=== PATIENT | female | born 1985 | race Asian ===

== ENCOUNTER 2017-03-23 10:52 | Outpatient (CLI) | payer OTHER ==
--- NOTE | 2017-03-23 11:35 | XRAY Preliminary Report ---
Exam: XR CHEST 2 VIEW PA/LAT IMPRESSION: Findings suggest multifocal pneumonia in the correct clinical context. RADIA The call report notification system was initiated by Dr. Niraj Del Valle at 11:22 hrs on 03/23/17. The above findings were discussed with dr. Hoffman by Dr. Niraj Del Valle at 11:34 hrs on 03/23/17. SITE ID: [id number]
--- NOTE | 2017-03-23 11:38 | XRAY Report ---
EXAM: CHEST RADIOGRAPHY EXAM DATE: 03/23/2017 11:14 AM. CLINICAL HISTORY: COUGH, SOB, METHOTREXATE USE. COMPARISON: None. TECHNIQUE: 2 views. FINDINGS: Lungs/Pleura: Patchy bilateral pulmonary opacities in the left upper lobe and right middle and probab ly lower lobe, suggesting multifocal pneumonia. No large pleural effusion. No convincing pneumothorax . Mediastinum: Heart and mediastinal contours are unremarkable. Other: None. IMPRESSION: Findings suggest multifocal pneumonia in the correct clinical context. RADIA The call report notification system was initiated by Dr. Niraj Del Valle at 11:22 hrs on 03/23/17. The above findings were discussed with dr. Hoffman by Dr. Niraj Del Valle at 11:34 hrs on 03/23/17. Referring Provider Line: [phone] SITE ID: [id number]
[2017-03-23 11:44] LABS: BASOPHILS % (AUTO) 0.4 %; EOSINOPHILS # (AUTO) 0.1 10^3/uL (0.0-0.7); EOSINOPHILS % (AUTO) 1.5 %; HCT - HEMATOCRIT 30.9 % (37.0-47.0); HGB - HEMOGLOBIN 10.2 g/dL (12.0-16.0); LYMPHOCYTES # (AUTO) 1.7 10^3/uL (1.5-3.5); LYMPHOCYTES % (AUTO) 22.3 %; MEAN CORPUSCULAR HEMOGLOBIN 26.3 pg (27.0-31.0); MEAN CORPUSCULAR HGB CONC 33.1 g/dL (32.0-36.0); MEAN CORPUSCULAR VOLUME 79.5 fL (81.0-99.0); MEAN PLATELET VOLUME 8.8 fL (7.9-10.8); MONOCYTES # (AUTO) 0.8 10^3/uL (0.0-1.0); MONOCYTES % (AUTO) 10.5 %; NEUTROPHILS # (AUTO) 5.1 10^3/uL (1.5-6.6); NEUTROPHILS % (AUTO) 65.3 %; RED BLOOD COUNT 3.89 10^6/uL (4.20-5.40); RED CELL DISTRIBUTION WIDTH 14.4 % (12.0-15.0); UNCORRECTED WHITE BLOOD COUNT 7.8 x10^3/uL; WHITE BLOOD COUNT 7.8 x10^3/uL (4.8-10.8)
[2017-03-23 11:56] LABS: ALBUMIN/GLOBULIN RATIO 0.6 (1.0-2.2); BILIRUBIN,TOTAL 0.5 mg/dL (0.2-1.0); CALCIUM 8.6 mg/dL (8.5-10.3); CREATININE 0.6 mg/dL (0.4-1.0); POTASSIUM 4.1 mmol/L (3.5-5.0); TOTAL PROTEIN 8.5 g/dL (6.7-8.2)
== END 2017-03-23 10:53 | disposition home or self-care (01) ==
LOC: DI 10:52
PROVIDERS: ATTEND Physician Assistant
DX: R05 Cough (principal); R09.02 Hypoxemia; Z79.899 Other long term (current) drug therapy; D64.9 Anemia, unspecified; R06.02 Shortness of breath
CPT/HCPCS: 36415; 71020; 80053; 85025; 85379

== ENCOUNTER 2017-04-28 11:43 | Outpatient (CLI) | payer OTHER ==
--- NOTE | 2017-04-28 16:20 | XRAY Report ---
DATE OF SERVICE: 04/28/2017 TWO-VIEW CHEST: 04/28/2017 CLINICAL INDICATION: Followup bilateral pneumonia. FINDINGS: Frontal and lateral views of the chest are compared to previous films of 03/23/2017. The cardiac silhouette is within normal limits. Previously seen bilateral infiltrates have resolved. The lungs are now clear. No effusion or pneumothorax is present. IMPRESSION: RESOLUTION OF BILATERAL PNEUMONIA. TD: 04/28/2017 17:19
== END 2017-04-28 11:44 | disposition home or self-care (01) ==
LOC: DI 11:43
PROVIDERS: ATTEND Physician Assistant
DX: J18.9 Pneumonia, unspecified organism (principal)
CPT/HCPCS: 71046

== ENCOUNTER 2018-01-02 10:18 | Outpatient (CLI) | payer OTHER ==
[2018-01-02 12:24] LABS: HB2 TOTAL 12.1 g/dL; HEMOGLOBIN A1C 0.48 g/dL; HEMOGLOBIN A1C % 5.8 % (4.6-6.2)
[2018-01-02 13:30] LABS: CHOLESTEROL 100 mg/dL; HDL CHOLESTEROL 25 mg/dL; LDL CHOLESTEROL,CALCULATED 65 mg/dL; LDL/HDL RATIO 2.6 (<4.4); VLDL CHOLESTEROL 10 mg/dL
[2018-01-03 13:21] LABS: HEPATITIS B SURFACE ANTIGEN NON-REACTIVE (NON-REACTIVE)
== END 2018-01-02 10:19 | disposition home or self-care (01) ==
LOC: LAB 10:18
PROVIDERS: ATTEND Physician Assistant
DX: B20 Human immunodeficiency virus [HIV] disease (principal); R94.5 Abnormal results of liver function studies
CPT/HCPCS: 36415; 80053; 80061; 81599; 82955; 83036; 83721; 84702; 85025; 86317; 87340

== ENCOUNTER 2018-01-02 10:20 | Emergency (ER) | payer OTHER ==
[2018-01-02] MEDS ORDERED: SODIUM CHLORIDE 0.9% 1,000 ML IV ONE (10:55)
[2018-01-02 11:30] LABS: BASOPHILS % (AUTO) 0.3 %; EOSINOPHILS # (AUTO) 0.3 10^3/uL (0.0-0.7); EOSINOPHILS % (AUTO) 9.1 %; HGB - HEMOGLOBIN 11.3 g/dL (12.0-16.0); LYMPHOCYTES # (AUTO) 0.4 10^3/uL (1.5-3.5); LYMPHOCYTES % (AUTO) 12.4 %; MEAN CORPUSCULAR HEMOGLOBIN 26.1 pg (27.0-31.0); MEAN CORPUSCULAR HGB CONC 32.9 g/dL (32.0-36.0); MEAN CORPUSCULAR VOLUME 79.4 fL (81.0-99.0); MEAN PLATELET VOLUME 8.9 fL (7.9-10.8); MONOCYTES # (AUTO) 0.3 10^3/uL (0.0-1.0); MONOCYTES % (AUTO) 9.6 %; NEUTROPHILS # (AUTO) 2.3 10^3/uL (1.5-6.6); NEUTROPHILS % (AUTO) 68.6 %; PLT - PLATELET COUNT 141 10^3/uL (130-450); RED BLOOD COUNT 4.31 10^6/uL (4.20-5.40); RED CELL DISTRIBUTION WIDTH 13.6 % (12.0-15.0); WHITE BLOOD COUNT 3.3 x10^3/uL (4.8-10.8)
[2018-01-02 11:42] LABS: ALBUMIN 3.8 g/dL (3.2-5.5); ALBUMIN/GLOBULIN RATIO 0.7 (1.0-2.2); BILIRUBIN,TOTAL 0.4 mg/dL (0.2-1.0); CALCIUM 9.1 mg/dL (8.5-10.3); CREATININE 0.6 mg/dL (0.4-1.0); TOTAL PROTEIN 9.6 g/dL (6.7-8.2)
[2018-01-02 12:59] LABS: HCG UR QUAL NEGATIVE
--- NOTE | 2018-01-02 13:04 | ED Physician Documentation ---
History of Present Illness - Stated complaint Stated Complaint: FAINTING - Chief complaint Chief Complaint: Abd Pain - History obtained from History obtained from: Patient, Family (spouse) - History of Present Illness Timing: How many days ago (6) - Additonal information Additional information: The patient is a 32-year-old female who presents with watery diarrhea of 6 days' duration, and feeling faint this morning. She returned from [facility] one week ago, and was initially thought to have traveler's diarrhea. She was seen by her primary provider 4 days ago and was started on an antidiarrheal medication. Blood work subsequently revealed positive HIV test. She was seen again yesterday and further blood work was ordered for today. While the patient was at the lab getting a blood draw, she felt faint and was sent to the emergency department. She denies fever, abdominal pain, nausea or vomiting. She denies history of similar symptoms in the past. Review of Systems Constitutional: denies: Fever Nose: denies: Congestion Throat: denies: Sore throat Cardiac: denies: Chest pain / pressure Respiratory: denies: Dyspnea, Cough GI: reports: Diarrhea. denies: Abdominal Pain, Nausea, Vomiting : denies: Dysuria Skin: denies: Rash Musculoskeletal: denies: Back pain Neurologic: denies: Focal weakness, Syncope, Headache PD PAST MEDICAL HISTORY - Past Medical History Past Medical History: Yes Other Past Medical History: puneet ariza - Past Surgical History Past Surgical History: No - Present Medications Home Medications: Ambulatory Orders Medication Instructions Recorded Confirmed Loperamide [Imodium] 2 mg PO BID PRN #12 capsule 01/02/18 - Allergies Allergies/Adverse Reactions: Allergies Allergy/AdvReac Type Severity Reaction Status Date / Time No Known Drug Allergies Allergy Verified 01/02/18 10:33 - Social History Does the pt smoke?: No Smoking Status: Never smoker Does the pt drink ETOH?: No Does the pt have substance abuse?: No Additional Social History: Returned from [facility] one week ago. - Immunizations Immunizations are current?: Yes PD ED PE NORMAL - Vitals Vital signs reviewed: Yes (Hypotensive with blood pressure 88/54.) - General General: Alert and oriented X 3, Well developed/nourished - HEENT HEENT: Atraumatic, Pharynx benign - Neck Neck: Supple, no meningeal sign, No adenopathy - Cardiac Cardiac: RRR, No murmur - Respiratory Respiratory: No respiratory distress, Clear bilaterally - Abdomen Abdomen: Soft, Non tender - Back Back: No CVA TTP - Derm Derm: No rash - Extremities Extremities: No edema, No calf tenderness / cord - Neuro Neuro: Alert and oriented X 3, No motor deficit, No sensory deficit Results - Vitals Vitals: Oxygen O2 Source Room air - Labs Labs: Laboratory Tests 01/02/18 01/02/18 01/02/18 11:23 11:23 12:51 WBC 3.3 L RBC 4.31 Hgb 11.3 L Hct 34.2 L MCV 79.4 L MCH 26.1 L MCHC 32.9 RDW 13.6 Plt Count 141 MPV 8.9 Neut # (Auto) 2.3 Lymph # (Auto) 0.4 [place] # (Auto) 0.3 Eos # (Auto) 0.3 Baso # (Auto) 0.0 Absolute Nucleated RBC 0.00 Nucleated RBC % 0.0 Sodium 135 Potassium 3.9 Chloride 102 Carbon Dioxide 25 Anion Gap 8.0 BUN 13 Creatinine 0.6 Estimated GFR (MDRD) 117 Glucose 99 Calcium 9.1 Total Bilirubin 0.4 AST 42 ALT 33 Alkaline Phosphatase 77 Total Protein 9.6 H Albumin 3.8 Globulin 5.8 H Albumin/Globulin Ratio 0.7 L Lipase 26 Ur Specific [place] 1.020 Urine HCG, Qual NEGATIVE PD MEDICAL DECISION MAKING - ED course Complexity details: reviewed results, re-evaluated patient, considered differential, d/w patient, d/w family ED course: The patient's presentation is significant for diarrhea with dehydration. CBC reveals a mild leukopenia with a white blood cell count 3.3. Chemistry panel is normal. Treatment in the emergency department included administration of normal saline 1 L IV. She felt subjectively much improved after this treatment, and repeat blood pressure was normal at 110/76. She is being discharged with prescription for Imodium. I discussed with her and her the importance of outpatient follow-up, as well as potentially worrisome signs or symptoms that should prompt reevaluation in the emergency department. - Sepsis Event Vital Signs: Oxygen O2 Source Room air Departure - Departure Disposition: 01 Home, Self Care Clinical Impression: Dehydration Diarrhea Qualifiers: Diarrhea type: unspecified type Qualified Code(s): R19.7 - Diarrhea, unspecified Condition: Stable Instructions: ED Dehydration, ED Diet Vomiting Diarrhea Follow-Up: Jayde Hoffman PA [Primary Care Provider] - Prescriptions: Loperamide [Imodium] 2 mg PO BID PRN #12 capsule PRN Reason: Diarrhea Comments: Drink plenty of fluids. You can use Imodium as prescribed if needed for recurrent diarrhea. Follow-up with ARIS Hoffman as scheduled. Return to the emergency department if you develop increasing abdominal pain, recurrent dehydration or lightheadedness, or otherwise worrisome symptoms. Discharge Date/Time: 01/02/18 13:14
[2018-01-02 13:10] VITALS: BP 110/76
== END 2018-01-02 13:14 | disposition home or self-care (01) ==
LOC: ED 10:20
DX: E86.0 Dehydration (principal); R19.7 Diarrhea, unspecified; B20 Human immunodeficiency virus [HIV] disease; R94.5 Abnormal results of liver function studies; I10 Essential (primary) hypertension; D72.819 Decreased white blood cell count, unspecified
CPT/HCPCS: 36415; 71046; 80053; 80061; 81025; 82955; 83036; 83690; 84702; 85025; 86317; 87340; 96360; 99282; 99283

== ENCOUNTER 2018-01-02 13:23 | Outpatient (CLI) | payer OTHER ==
--- NOTE | 2018-01-02 15:59 | XRAY Report ---
Reason: SCREENING BEFORE STARTING ANTIVIRALS Procedure Date: 01/02/2018 Accession Number: [id number] / [id number] Procedure: XR - Chest 2 View X-Ray CPT Code: 49328 FULL RESULT: EXAM: CHEST RADIOGRAPHY EXAM DATE: 01/02/2018 01:46 PM. CLINICAL HISTORY: SCREENING BEFORE STARTING ANTIVIRALS. Fever, chills, recent travel COMPARISON: 04/28/2017. TECHNIQUE: 2 views. FINDINGS: Lungs/Pleura: Peribronchial thickening, increased interstitial markings bilaterally. No focal consolidation. No effusion. Mediastinum: Heart and mediastinal contours are unremarkable. Other: None. IMPRESSION: Findings suggestive of bronchitis or interstitial pneumonia. RADIA
== END 2018-01-02 13:24 | disposition home or self-care (01) ==
LOC: DI 13:23
PROVIDERS: ATTEND Nurse Practitioner Family
DX: B20 Human immunodeficiency virus [HIV] disease (principal)
CPT/HCPCS: 71046

== ENCOUNTER 2018-01-08 09:05 | Outpatient (CLI) | payer OTHER ==
--- NOTE | 2018-01-13 09:41 | DEXA Report ---
Reason: SCREENING BEFORE STARTING ANTIVIRAL Procedure Date: 01/08/2018 Accession Number: [id number] / [id number] Procedure: DEX - Dexa Spine and/or Hip CPT Code: FULL RESULT: EXAM: Dexa Spine and/or Hip DATE: 01/08/2018 9:35 AM CLINICAL HISTORY: SCREENING BEFORE STARTING ANTIVIRAL TECHNIQUE: Dual energy x-ray absorptiometry (DXA) was performed on a [employer] System. Regions measured are the AP Spine, femoral neck, and if needed forearm. COMPARISON: None. In accordance with the International Society for Clinical Densitometry (ISCD) guidelines, data from previous exams may be reanalyzed using current recommendations and techniques. This is done to allow a more accurate basis for comparison with the current study. FINDINGS: The data for the lumbar spine is as follows: BMD (g/cm/cm) T-SCORE Z-SCORE REGION L1 1.082 -0.4 0.3 L2 1.089 -0.9 -0.3 L3 1.116 -0.7 0.0 L4 1.174 -0.2 0.4 TOTAL 1.120 -0.5 0.2 NOTE: All evaluable vertebrae are used for classification The data for the hip is as follows: BMD (g/cm/cm) T-SCORE Z-SCORE REGION Neck 0.960 -0.6 0.1 TOTAL 0.922 -0.7 -0.1 NOTE: The femoral neck or total proximal femur, whichever is lowest, is used for classification. IMPRESSION: THE WHO CLASSIFICATION BASED ON THE INTERNATIONAL REFERENCE STANDARD IS NORMAL. THE FRACTURE RISK IS NOT INCREASED. RECOMMENDATION: Patients with diagnosis of osteoporosis or osteopenia should have regular bone mineral density assessment. For those eligible for Medicare, routine testing is allowed once every 2 years. Testing frequency can be increased for patients who have rapidly progressing disease or for those who are receiving medical therapy to restore bone mass. COMMENT: World Health Organization (WHO) definitions for osteoporosis and osteopenia: NORMAL BMD: T-score at -1.0 or higher, fracture risk is low OSTEOPENIA BMD: T-score between -1.0 and -2.5, fracture risk is increased. OSTEOPOROSIS BMD: T-score at -2.5 or lower, fracture risk is high. National Osteoporosis Foundation recommends: 1. Obtain adequate dietary calcium (at least 1200 mg per day) and vitamin D (400-800 international units per day). 2. Participate, as appropriate, in regular weightbearing and muscle-strengthening exercise. 3. Avoid tobacco use and reduce alcohol and caffeine intake. 4. For more detailed information see the website at www.NOF.org.
== END 2018-01-08 09:06 | disposition home or self-care (01) ==
LOC: DI 09:05
PROVIDERS: ATTEND Nurse Practitioner Family
DX: Z13.820 Encounter for screening for osteoporosis (principal)
CPT/HCPCS: 77080

== ENCOUNTER 2018-01-10 08:21 | Outpatient (CLI) | payer OTHER | END 2018-01-10 08:22 | disposition home or self-care (01) | LOC: LAB 08:21 | PROVIDERS: ATTEND Physician Assistant | DX: Z53.9 Procedure and treatment not carried out, unspecified reason (principal) ==

== ENCOUNTER 2021-09-18 13:11 | Emergency (ER) | payer OTHER ==
[2021-09-18 13:40] LABS: BASOPHILS # (AUTO) 0.1 10^3/uL (0.0-0.1); BASOPHILS % (AUTO) 0.7 %; EOSINOPHILS # (AUTO) 0.2 10^3/uL (0.0-0.7); EOSINOPHILS % (AUTO) 1.7 %; HCT - HEMATOCRIT 41.9 % (37.0-47.0); HGB - HEMOGLOBIN 13.9 g/dL (12.0-16.0); LYMPHOCYTES # (AUTO) 3.3 10^3/uL (1.5-3.5); LYMPHOCYTES % (AUTO) 37.3 %; MEAN CORPUSCULAR HEMOGLOBIN 28.3 pg (27.0-31.0); MEAN CORPUSCULAR HGB CONC 33.2 g/dL (32.0-36.0); MEAN CORPUSCULAR VOLUME 85.3 fL (81.0-99.0); MEAN PLATELET VOLUME 9.5 fL (7.9-10.8); MONOCYTES # (AUTO) 0.6 10^3/uL (0.0-1.0); MONOCYTES % (AUTO) 7.2 %; NEUTROPHILS # (AUTO) 4.7 10^3/uL (1.5-6.6); NEUTROPHILS % (AUTO) 52.9 %; PLT - PLATELET COUNT 241 10^3/uL (130-450); RED BLOOD COUNT 4.91 10^6/uL (4.20-5.40); RED CELL DISTRIBUTION WIDTH 13.7 % (12.0-15.0); WHITE BLOOD COUNT 8.8 x10^3/uL (4.8-10.8)
[2021-09-18 13:52] LABS: ALBUMIN 4.7 g/dL (3.2-5.5); ALBUMIN/GLOBULIN RATIO 1.2 (1.0-2.2); BILIRUBIN,TOTAL 1.1 mg/dL (0.2-1.0); CALCIUM 9.9 mg/dL (8.5-10.3); CREATININE 0.9 mg/dL (0.4-1.0); POTASSIUM 4.3 mmol/L (3.5-5.0); TOTAL PROTEIN 8.7 g/dL (6.7-8.2)
[2021-09-18 15:02] LABS: BILIRUBIN,URINE NEGATIVE (NEGATIVE); GLUCOSE, URINE (UA) NEGATIVE (NEGATIVE); KETONES,URINE (UA) NEGATIVE (NEGATIVE); LEUKOCYTE ESTERASE, URINE NEGATIVE (NEGATIVE); NITRITE,URINE NEGATIVE (NEGATIVE); OCCULT BLOOD,URINE SMALL (NEGATIVE); PH,URINE 6.5 PH (5.0-7.5); PROTEIN,URINE NEGATIVE (NEGATIVE); UROBILINOGEN,URINE 0.2 (NORMAL) E.U./dL (NORMAL)
[2021-09-18] MEDS ORDERED: SODIUM CHLORIDE 0.9% 1,000 ML IV STA (15:04)
--- NOTE | 2021-09-18 15:07 | ED Physician Documentation ---
History of Present Illness - Stated complaint Stated Complaint: DIZZY,DIARRHEA,BLOOD IN STOOL - Chief complaint Chief Complaint: Abd Pain - Additonal information Additional information: 36-year-old female presents to the emergency department for evaluation of 3 days of diarrhea. She reports eating seafood and drinking wine Friday night and the diarrhea began Friday morning. None of her friends that had similar food to have similar symptoms. She had no fevers. No recent travel or antibiotics. Patient reports anytime she has anything to eat or drink she will have watery stool about 30 to 45 minutes later. She is feeling lightheaded though no fainting episodes. She did take Imodium prior to arrival Review of Systems Constitutional: denies: Fever, Chills Ears: reports: Reviewed and negative Nose: reports: Reviewed and negative Throat: reports: Reviewed and negative Cardiac: reports: Reviewed and negative Respiratory: reports: Reviewed and negative GI: reports: Diarrhea : reports: Reviewed and negative Skin: reports: Reviewed and negative PD PAST MEDICAL HISTORY - Past Surgical History Past Surgical History: No - Present Medications Home Medications: Ambulatory Orders Medication Instructions Recorded Confirmed Bictegrav/Emtricit/Tenofov Ala 1 tab ORAL DAILY 09/18/21 09/18/21 [Biktarvy 50-200-25 mg Tablet] - Allergies Allergies/Adverse Reactions: Allergies Allergy/AdvReac Type Severity Reaction Status Date / Time No Known Drug Allergies Allergy Verified 09/18/21 13:17 - Social History Does the pt smoke?: No Smoking Status: Never smoker Does the pt drink ETOH?: No Does the pt have substance abuse?: No - Immunizations Immunizations are current?: Yes PD ED PE NORMAL - General General: Alert and oriented X 3, No acute distress, Well developed/nourished - HEENT HEENT: Atraumatic, Moist mucous membranes - Neck Neck: Supple, no meningeal sign, No adenopathy - Cardiac Cardiac: RRR, No murmur - Respiratory Respiratory: No respiratory distress, Clear bilaterally - Abdomen Abdomen: Normal bowel sounds, Soft, Non tender (No abdominal tenderness elicited to deep or light percussion/palpation) - Back Back: No CVA TTP, No spinal TTP - Derm Derm: Normal color, Warm and dry - Extremities Extremities: No deformity, No tenderness to palpate, Normal ROM s pain - Neuro Neuro: Alert and oriented X 3, cone winder 2-12 intact Eye Opening: Spontaneous Motor: Obeys Commands Verbal: Oriented GCS Score: 15 Results - Vitals Vitals: Vital Signs - 24 hr 09/18/21 09/18/21 09/18/21 13:18 13:24 15:24 Temperature 36.9 C 36.9 C Heart Rate 76 76 63 Respiratory 16 16 16 Rate Blood Pressure 130/91 H 130/91 H 139/99 H O2 Saturation 100 100 100 Oxygen O2 Source Room air - Labs Labs: Laboratory Tests 09/18/21 09/18/21 09/18/21 13:34 13:34 14:30 WBC 8.8 RBC 4.91 Hgb 13.9 Hct 41.9 MCV 85.3 MCH 28.3 MCHC 33.2 RDW 13.7 Plt Count 241 MPV 9.5 Neut # (Auto) 4.7 Lymph # (Auto) 3.3 [place] # (Auto) 0.6 Eos # (Auto) 0.2 Baso # (Auto) 0.1 Absolute Nucleated RBC 0.00 Nucleated RBC % 0.0 Sodium 142 Potassium 4.3 Chloride 103 Carbon Dioxide 28 Anion Gap 11.0 BUN 15 Creatinine 0.9 Estimated GFR (MDRD) 71 L Glucose 104 H Calcium 9.9 Total Bilirubin 1.1 H AST 24 ALT 25 Alkaline Phosphatase 44 Total Protein 8.7 H Albumin 4.7 Globulin 4.0 Albumin/Globulin Ratio 1.2 Lipase 38 Urine Color STRAW Urine Clarity CLEAR Urine pH 6.5 Ur Specific [place] <=1.005 Urine Protein NEGATIVE Urine Glucose (UA) NEGATIVE Urine Ketones NEGATIVE Urine Occult Blood SMALL H Urine Nitrite NEGATIVE Urine Bilirubin NEGATIVE Urine Urobilinogen 0.2 (NORMAL) Ur Leukocyte Esterase NEGATIVE Urine RBC 6-10 H Urine WBC 0-3 Ur Squamous Epith Cells FEW Squamous Urine Bacteria Rare Ur Microscopic Review INDICATED Urine Culture Comments NOT INDICATED Urine HCG, Qual NEGATIVE PD MEDICAL DECISION MAKING - ED course Complexity details: reviewed results, re-evaluated patient, considered differential, d/w patient ED course: Well-appearing 36-year-old female presents emergency department for evaluation of 3 days of watery stools that followed an evening and drinking as well as seafood. No similar illness and friends or family. No fevers. Nonbloody output. Screening labs are essentially unremarkable. No abdominal tenderness was elicited therefore CT imaging deferred. Patient did take a dose of Imodium prior to coming to the ER and while here she has not had any diarrhea despite sipping liquids. She was given a liter of IV fluid with marked improvement in feelings of being lightheaded. Emergent return precautions were discussed for failure symptoms to resolve. Departure - Departure Disposition: 01 Home, Self Care Clinical Impression: Diarrhea Qualifiers: Diarrhea type: unspecified type Qualified Code(s): R19.7 - Diarrhea, unspecified Comments: You are seen today in the emergency department for diarrhea. It is most likely that the cause of this is simply a virus and it usually resolves between 3 and 5 days. Recommend the stay well-hydrated. Drink lots of water or broth. If you are drinking juice mix it half with water. Pure juice intake can worsen diarrhea. He did take a dose of Imodium which seems to have improved your symptoms. You can use this occasionally over the next few days. Your screening labs today do not show any worrisome findings. If at any point you find that your diarrhea is not resolving, is accompanied by high fevers, any bloody output then you should return immediately to the ER for second evaluation.
[2021-09-18 15:09] LABS: CLARITY,URINE CLEAR (CLEAR); HCG UR QUAL NEGATIVE
[2021-09-18 15:27] LABS: BACTERIA,URINE Rare /HPF (None Seen); SQUAMOUS EPITHELIAL CELL,UR FEW Squamous (<= Few); WBC,URINE 0-3 /HPF (0-5)
[2021-09-18 16:44] VITALS: BP 136/98
== END 2021-09-18 16:47 | disposition home or self-care (01) ==
LOC: ED 13:11
DX: R19.7 Diarrhea, unspecified (principal)
CPT/HCPCS: 36415; 80053; 81001; 81003; 81025; 83690; 85025; 87086; 99282; 99283